=== PATIENT | male | born 2000 | race African-American/Black ===

== ENCOUNTER 2020-03-03 07:58 | Emergency (ER) | payer OTHER ==
[~2020-03-03] VITALS: Ht 180.3 cm; Wt 65.5 kg
--- NOTE | 2020-03-03 08:49 | REPVR ---
PROCEDURE INFORMATION: Exam: XR Chest, 1 View Exam date and time: 03/03/2020 8:24 AM Age: 19 years old Clinical indication: Other: Passed out during PT; Additional info: Chest pain TECHNIQUE: Imaging protocol: XR of the chest Views: 1 view. COMPARISON: No relevant prior studies available. FINDINGS: Lungs: Unremarkable. No consolidation. Pleural space: Unremarkable. No pleural effusion. No pneumothorax. Heart/Mediastinum: Unremarkable. No cardiomegaly. Bones/joints: Unremarkable. IMPRESSION: No acute findings. Electronically signed by: Eliseo Thomas On 03/03/2020 08:49:43 AM
[2020-03-03] MEDS ORDERED: ISOVUE-370 76% 100ML VIAL As Ordered ONE (08:53)
[2020-03-03] MEDS ORDERED: ACETAMINOPHEN 325 MG TAB PO ONE (09:15)
[2020-03-03 09:18] LABS: BASO % 0.2 % (0.0-1.0); EOS % 0.7 % (0.0-3.0); HEMATOCRIT 49.4 % (42.0-52.0); HEMOGLOBIN 16.2 g/dl (13.5-17.5); LYMPH # 1.1 10^3/uL (1.5-5.0); MEAN CORPUSCULAR HEMOGLOBIN 29.3 pg (27.0-33.0); MEAN CORPUSCULAR HGB CONC 32.8 g/dl (32.0-36.5); MEAN CORPUSCULAR VOLUME 89.5 fl (80.0-96.0); MONO # 0.5 10^3/uL (0.0-0.8); MONO % 7.7 % (0.0-5.0); NEUTROPHILS # 4.4 10^3/uL (1.5-8.5); NEUTROPHILS % 73.2 % (36.0-66.0); PLATELET COUNT, AUTOMATED 200 10^3/uL (150-450); RED BLOOD COUNT 5.52 10^6/uL (4.30-6.10)
--- NOTE | 2020-03-03 09:40 | REPVR ---
PROCEDURE INFORMATION: Exam: CT Head Without Contrast Exam date and time: 03/03/2020 8:59 AM Age: 19 years old Clinical indication: Pain; Headache not specified; Additional info: ADRIAN TECHNIQUE: Imaging protocol: Computed tomography of the head without contrast. Radiation optimization: All CT scans at this facility use at least one of these dose optimization techniques: automated exposure control; mA and/or kV adjustment per patient size (includes targeted exams where dose is matched to clinical indication); or iterative reconstruction. COMPARISON: No relevant prior studies available. FINDINGS: Brain: Normal. No hemorrhage. Unremarkable white matter. No mass effect. Ventricles: No ventriculomegaly. Bones/joints: Unremarkable. No acute fracture. Paranasal sinuses: Visualized sinuses are unremarkable. No fluid levels. Mastoid air cells: Visualized mastoid air cells are well aerated. Soft tissues: Unremarkable. IMPRESSION: No acute intracranial abnormality. Electronically signed by: Eliseo Thomas On 03/03/2020 09:40:11 AM
[2020-03-03 09:42] LABS: ALBUMIN 4.1 GM/DL (3.2-5.2); BILIRUBIN,DIRECT 0.2 MG/DL (0.0-0.2); BILIRUBIN,TOTAL 0.6 MG/DL (0.2-1.0); FREE T4 0.98 NG/DL (0.76-1.46); THYROID STIMULATING HORMONE 1.98 uIU/ML (0.358-3.740); TOTAL PROTEIN 7.4 GM/DL (6.4-8.2)
--- NOTE | 2020-03-03 09:44 | REPVR ---
PROCEDURE INFORMATION: Exam: CT Angiography Chest With Contrast Exam date and time: 03/03/2020 8:59 AM Age: 19 years old Clinical indication: Other: R/O pe TECHNIQUE: Imaging protocol: Computed tomographic angiography of the chest with intravenous contrast. 3D rendering (Not supervised by radiologist): MIP and/or 3D reconstructed images were created by the technologist. Radiation optimization: All CT scans at this facility use at least one of these dose optimization techniques: automated exposure control; mA and/or kV adjustment per patient size (includes targeted exams where dose is matched to clinical indication); or iterative reconstruction. Contrast material: ISOVUE 370; Contrast volume: 75 ml; Contrast route: INTRAVENOUS (IV); COMPARISON: CR PORTABLE CHEST X-RAY 03/03/2020 8:41 AM FINDINGS: Pulmonary arteries: Normal. No pulmonary emboli. Aorta: Unremarkable. No aortic aneurysm. No aortic dissection. Lungs: Unremarkable. No consolidation. No masses. Pleural space: Unremarkable. No pneumothorax. No pleural effusion. Heart: Unremarkable. No cardiomegaly. No pericardial effusion. Lymph nodes: Unremarkable. No enlarged lymph nodes. Bones/joints: Unremarkable. No acute fracture. Soft tissues: Suggestion of gynecomastia IMPRESSION: No acute findings. Electronically signed by: Eliseo Thomas On 03/03/2020 09:43:56 AM
[2020-03-03] MEDS ORDERED: NS 1,000 ML IV ONE (10:30)
[2020-03-03 14:04] VITALS: BP 139/84
--- NOTE | 2020-03-03 20:27 | ECGEPIP ---
[facility] - ED Test Date: 2020-03-03 Pat Name: MINOO DIA Department: Room: - Gender: Male Trading Specialist: susanne wood : 2000 Requested By: Mikki Keen Order Number: [id number] Reading MD: Yasmin Tran Measurements Intervals [facility] Rate: 84 P: 63 [place]: 189 QRS: 42 QRSD: 86 T: 14 QT: 335 QTc: 396 Interpretive Statements SINUS RHYTHM NO PRIOR Electronically Signed on 03-03-2020 20:27:22 EDT by Yasmin Tran
--- NOTE | 2020-03-03 20:31 | ECGEPIP ---
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
== END 2020-03-03 14:05 | disposition home or self-care (01) ==
LOC: M ED 07:58
DX: R07.9 Chest pain, unspecified (principal); I95.1 Orthostatic hypotension; R51 Headache; R55 Syncope and collapse
CPT/HCPCS: 70450; 71045; 71275; 80047; 80076; 84439; 84443; 84484; 85025; 93005; 93041; 94760; 96360; 96361; 99285; Q9967